=== PATIENT | female | born 1940 | race Caucasian/White ===

== ENCOUNTER → 2018-01-12 | Outpatient (CLI) | payer OTHER ==
[~2018-01-12] MED LIST: ADVAIR 250-501 EACH PO; BENZONATATE200 MG PO; COLACE100 MG PO; DEEP SEA NASAL44 M1 NASAL; DIPHENHIST25 MG PO; DOUBLE ANTIBI28.4 GM TP; DOXYCYCLINE 10100 MG PO; HYDROCODONE-CHLO5 ML PO; LEVOTHYROXINE0.05 MG PO; LIPITOR 20 MG T20 M1 PO; MUCINEX DM TABL1 TA1 PO; PAXIL10 MG PO; PEPCID20 MG PO; PREDNISONE 20 M20 MG PO; PROAIR RESPICL90 MCG INH; PROBIOTIC1 EAC1 PO; TYLENOL325 MG PO
== END ==
LOC: RAD 12:22
DX: R91.1 Solitary pulmonary nodule (principal)

== ENCOUNTER → 2018-01-16 | Outpatient (CLI) | payer OTHER | LOC: CAT 06:49 | DX: J98.4 Other disorders of lung (principal); R91.8 Other nonspecific abnormal finding of lung field; I25.10 Atherosclerotic heart disease of native coronary artery without angina pectoris; I70.0 Atherosclerosis of aorta ==